=== PATIENT | female | born 1985 | race Hispanic/Latino ===

== ENCOUNTER → 2019-01-20 | Outpatient (CLI) | payer OTHER | END | disposition home or self-care (01) | LOC: LAB 11:40 | PROVIDERS: ATTEND Obstetrics & Gynecology | DX: N94.6 Dysmenorrhea, unspecified (principal) | CPT/HCPCS: 36415; 84702 ==

== ENCOUNTER → 2019-01-21 | Outpatient (CLI) | payer OTHER ==
[~2019-01-21] MED LIST: IOHEXOL-350 50ML VIAL IV ONE
== END | disposition home or self-care (01) ==
LOC: RAH 08:36
PROVIDERS: ATTEND Obstetrics & Gynecology
DX: N94.6 Dysmenorrhea, unspecified (principal)
CPT/HCPCS: 58340; 74740; Q9967

== ENCOUNTER 2021-03-13 10:59 | Inpatient (IN) | payer OTHER ==
[~2021-03-13] VITALS: Ht 149.9 cm; Wt 79.4 kg
[2021-03-13] MEDS ORDERED: CALDOLOR 800MG+NS 250ML 250 ML IV PRN (11:30)
[2021-03-13] MEDS ORDERED: CEFAZOLIN SODIUM 1 GM VIAL IVP PRN (11:30)
[2021-03-13] MEDS ORDERED: LACTATED RINGERS 1000ML 1,000 ML IV SCH ×2 (11:30→13:30)
[2021-03-13 11:46] LABS: HEMATOCRIT 37.4 % (36-48); MEAN CORPUSCULAR HEMOGLOBIN 28.3 pg (27.0-33.0); MEAN CORPUSCULAR HGB CONC 33.2 g/dL (32.0-36.0); MEAN CORPUSCULAR VOLUME 85.4 fL (79-99); RED BLOOD CELL COUNT(AUTO) 4.38 MIL/uL (4.00-5.50); RED CELL DISTRIBUTION WIDTH 15.3 % (11.0-15.5); WHITE BLOOD COUNT (AUTO) 9.2 K/uL (4.8-10.8)
[2021-03-13] MEDS ORDERED: ONDANSETRON 4MG INJ ONE (12:07)
[2021-03-13] MEDS ORDERED: FENTANYL CITRATE PF 50 MCG/1 ML 2ML VIAL ONE (12:08)
[2021-03-13] MEDS ORDERED: MORPHINE PF 100MG/10ML AMP IV ONE (12:08)
[2021-03-13] MEDS ORDERED: OXYTOCIN 10 USP UNITS/ML ONE (12:10)
[2021-03-13] MEDS ORDERED: CEFAZOLIN SODIUM 1 GM VIAL IVP ONE (12:18)
[2021-03-13 12:22] LABS: APPEARANCE,URINE Clear (CLEAR); BILIRUBIN,URINE Negative (NEGATIVE); COLOR,URINE Yellow (YELLOW); GLUCOSE, URINE (UA) Negative (NEGATIVE); KETONES,URINE 40 mg/dL (NEGATIVE); LEUKOCYTE ESTERASE ,URINE Negative (NEGATIVE); NITRATE,URINE Negative (NEGATIVE); OCCULT BLOOD,URINE Moderate (NEGATIVE); PH,URINE 6.5 (5.0-8.0); PROTEIN,URINE POS 1+ mg/dL (NEGATIVE)
[2021-03-13 12:38] LABS: BACTERIA,URINE Rare /HPF (None Seen); RBC,URINE 26-50 /HPF (0-1); WBC,URINE None Seen /HPF (0-1)
[2021-03-13] MEDS ORDERED: MAGNESIUM SULFATE 40GM/1000ML 1,000 ML IV ONE (13:15)
[2021-03-13] MEDS ORDERED: MAGNESIUM 4GM PREMIX 100ML 100 ML IV ONE (13:15)
[2021-03-13] MEDS ORDERED: OXYTOCIN-LR 20 UNITS/1000 ML 1,000 ML IV ONE (13:15)
[2021-03-13] MEDS ORDERED: MEPERIDINE-PF 75 MG/ML SYG IM PRN (13:30)
[2021-03-13] MEDS ORDERED: MAGNESIUM 4GM PREMIX 100ML 100 ML IV PRN ×2 (13:30)
[2021-03-13] MEDS ORDERED: DEXTROSE 5 %-0.45 % NACL 1,000 ML IV PRN (13:30)
[2021-03-13] MEDS ORDERED: CALCIUM GLUC 1GM/10ML VIAL IV PRN (13:30)
[2021-03-13] MEDS ORDERED: OXYTOCIN-LR 20 UNITS/1000 ML 1,000 ML IV PRN (13:30)
[2021-03-13] MEDS ORDERED: PROMETHAZINE HCL 25 MG/ML 1ML AMPULE IM PRN ×2 (13:30→15:30)
[2021-03-13] MEDS ORDERED: MAGNESIUM SULFATE 40GM/1000ML 1,000 ML IV PRN (13:30)
[2021-03-13] MEDS ORDERED: RACEPINEPHRINE HCL 2.25% 0.5 ML NEB SOLN NEB PRN (15:30)
[2021-03-13] MEDS ORDERED: ONDANSETRON 4MG INJ IVP PRN (15:30)
[2021-03-13] MEDS ORDERED: IPRATROPIUM/ALBUTEROL SULFATE 3 ML SOLUTION IH PRN (15:30)
[2021-03-13] MEDS ORDERED: METOCLOPRAMIDE 10 MG/2 ML VIAL IVP PRN (15:30)
[2021-03-13] MEDS ORDERED: NALOXONE HCL 0.4 MG/1 ML ML IVP PRN (15:30)
[2021-03-13] MEDS ORDERED: CALDOLOR 800MG+NS 250ML 250 ML IV ONE (21:21)
[2021-03-14] MEDS ORDERED: CALDOLOR 800MG+NS 250ML 250 ML IV ONE (05:29)
[2021-03-14 06:58] LABS: HEMATOCRIT 37.3 % (36-48); MEAN CORPUSCULAR HEMOGLOBIN 27.8 pg (27.0-33.0); MEAN CORPUSCULAR HGB CONC 33.2 g/dL (32.0-36.0); MEAN CORPUSCULAR VOLUME 83.6 fL (79-99); RED BLOOD CELL COUNT(AUTO) 4.46 MIL/uL (4.00-5.50); WHITE BLOOD COUNT (AUTO) 12.7 K/uL (4.8-10.8)
[2021-03-14 08:15] LABS: HEPATITIS Bs ANTIGEN SCREEN P Negative (Negative)
[2021-03-14] MEDS ORDERED: HYDROCODONE/ACETAMINOPHEN 5/325 MG TAB PO PRN (09:30)
[2021-03-14] MEDS ORDERED: ACETAMINOPHEN 500 MG TABLET PO PRN (09:30)
[2021-03-14] MEDS ORDERED: LANOLIN 30GM OINTMENT TP PRN (09:30)
[2021-03-14] MEDS ORDERED: ACETAMINOPHEN WITH CODEINE 1 TAB TAB PO PRN (09:30)
[2021-03-14] MEDS ORDERED: BISACODYL 10 MG SUPP.RECT RC PRN (09:30)
[2021-03-14 14:21] VITALS: BP 138/84
[2021-03-14 16:37] VITALS: BP 147/87
[2021-03-14] MEDS: IBUPROFEN 600 MG TABLET PO PRN (18:30)
[2021-03-14 19:46] VITALS: BP 143/79
[2021-03-14] MEDS: SIMETHICONE 80 MG TAB.CHEW PO PRN (20:44)
[2021-03-14] MEDS: DOCUSATE SODIUM 100 MG CAP PO SCH (20:44)
[2021-03-14] MEDS ORDERED: CALDOLOR 800MG+NS 250ML 250 ML IV SCH (21:30)
[2021-03-14 23:11] VITALS: BP 129/77
[2021-03-15] MEDS: IBUPROFEN 600 MG TABLET PO PRN ×2 (03:23→08:43)
[2021-03-15] MEDS ORDERED: PREN-202 PO (05:10)
[2021-03-15 05:17] VITALS: BP 136/76
[2021-03-15 07:17] VITALS: BP 130/75
[2021-03-15] MEDS: SIMETHICONE 80 MG TAB.CHEW PO PRN (08:43)
[2021-03-15] MEDS: DOCUSATE SODIUM 100 MG CAP PO SCH (08:43)
== END 2021-03-15 12:00 | disposition home or self-care (01) | DRG 788 ==
LOC: LDH 10:59 → WSH 03-14 14:15
PROVIDERS: ADMIT Obstetrics & Gynecology; ATTEND Obstetrics & Gynecology
PROC: 10D00Z1 Extraction of Products of Conception, Low, Open Approach (ICD-10-PCS; principal; 2021-03-13 12:00)
DX: O36.63X0 Maternal care for excessive fetal growth, third trimester, not applicable or unspecified (principal); O24.420 Gestational diabetes mellitus in childbirth, diet controlled; O34.211 Maternal care for low transverse scar from previous cesarean delivery; Z37.0 Single live birth; O99.214 Obesity complicating childbirth; O14.04 Mild to moderate pre-eclampsia, complicating childbirth; O99.824 Streptococcus B carrier state complicating childbirth; E66.9 Obesity, unspecified; O69.81X0 Labor and delivery complicated by cord around neck, without compression, not applicable or unspecified; D25.9 Leiomyoma of uterus, unspecified; O34.13 Maternal care for benign tumor of corpus uteri, third trimester; Z3A.38 38 weeks gestation of pregnancy
CPT/HCPCS: 36415; 59510; 81001; 82948; 85027; 86592; 86850; 86900; 86901; 87340; A4344; G0378; J0690; J1741; J2274; J2405; J2590; J3010; J3475; J7120